=== PATIENT | female | born 1950 | race Caucasian/White ===

== ENCOUNTER 2016-07-17 15:08 | Outpatient (CLI) | payer MEDICARE | END 2016-07-17 15:09 | disposition home or self-care (01) | DX: E06.9 Thyroiditis, unspecified (principal); Z51.81 Encounter for therapeutic drug level monitoring ==

== ENCOUNTER 2016-09-18 14:17 | Outpatient (CLI) | payer MEDICARE ==
--- NOTE | 2016-09-24 09:19 | Mammography Report ---
DIGITAL BILATERAL SCREENING MAMMOGRAM: 09/18/2016 CLINICAL HISTORY: A 65-year-old female in for routine screening mammogram. Patient's family history indicates a maternal half uncle with breast cancer. Patient has had no prior breast surgeries. COMPARISON: 09/08/2007, 08/25/2012, 02/07/2014, 06/27/2015 TECHNIQUE: Routine CC and MLO projections were obtained of the breasts. FINDINGS: Breast parenchyma is composed almost entirely of fat. No significant clusters of calcific ation are seen. No significant masses are noted. No change is seen. IMPRESSION: BREASTS APPEAR RADIOGRAPHICALLY BENIGN. BIRADS CATEGORY 1 - NEGATIVE. RECOMMENDATIONS: Annual bilateral screening mammography. STANDARD QUALIFYING STATEMENTS 1. This examination was reviewed with the aid of Computer-Aided Detection (CAD). 2. A negative or benign imaging report should not delay biopsy if clinically suspicious findings are present. Consider surgical consultation if warranted. More than 5% of cancers are not identified by i maging. 3. Dense breasts may obscure an underlying neoplasm. JOB #: [id number] EXT JOB #:[id number]
== END 2016-09-18 14:18 | disposition home or self-care (01) ==
LOC: DI 14:17
PROVIDERS: ATTEND Registered Nurse
DX: Z12.31 Encounter for screening mammogram for malignant neoplasm of breast (principal)
CPT/HCPCS: 77067

== ENCOUNTER 2016-10-16 13:09 | Outpatient (CLI) | payer MEDICARE ==
--- NOTE | 2016-10-16 16:12 | XRAY Report ---
RIGHT HIP AND PELVIS: 10/16/2016 CLINICAL INDICATION: Pain. FINDINGS: Frontal view of the hips and pelvis and frogleg lateral view of the right hip demonstrate mild osteoarthritis. There is no evidence of fracture or dislocation. No radiopaque foreign body is s een in the soft tissues. IMPRESSION: MILD RIGHT HIP OSTEOARTHRITIS. JOB #: [id number] EXT JOB #:[id number]
== END 2016-10-16 13:10 | disposition home or self-care (01) ==
LOC: DI 13:09
PROVIDERS: ATTEND Registered Nurse
DX: M16.11 Unilateral primary osteoarthritis, right hip (principal)

== ENCOUNTER 2017-01-17 09:07 | Outpatient (CLI) | payer MEDICARE ==
--- NOTE | 2017-01-18 18:05 | MRI Report ---
EXAM: RIGHT HIP MRI WITHOUT CONTRAST EXAM DATE: 01/17/2017 10:42 AM. CLINICAL HISTORY: Right leg myelopathy. Weakness in the right leg for 3-4 weeks. Low back and right h ip pain for years. Tingling. COMPARISON: 10/05/2016 radiograph. TECHNIQUE: Multiplanar, multisequence T1-weighted and fluid-sensitive, small xotmn-na-chnd sequences of the hip and large evyfi-tr-upvc sequences of the pelvis without contrast. Other: None. FINDINGS: Bones: No fractures or subluxations. No marrow edema or bone lesions. Right Hip: No acetabular retroversion. Femoral head/neck offset is within normal limits. No effusion or loose bodies. The articular cartilage of the posterior half of the joint space is moderately thinn ed. On this non-arthrographic evaluation, there appears to be a full-thickness tear of the anterosupe rior labrum in the 2 o'clock position (701, images 15 and 16. This is also appreciated on series 601, image 25). The ligamentum teres is intact. Other Joints: The visualized lumbar spine, sacroiliac joints, symphysis pubis, and contralateral hip are unremarkable. Musculature: No edema or fatty atrophy. Moderate right and mild left gluteus medius tendinosis is pr esent. The visualized hamstring tendons are normal. The ischiofemoral space is normal. Pelvic Cavity: The patient has a fibroid uterus. The other visualized pelvic organs are unremarkable. Other: The visualized sciatic nerves are unremarkable. No bursitis. The subcutaneous tissues are unre markable. IMPRESSION: 1. Full-thickness tear of the anterosuperior right labrum. 2. Moderate right and mild left gluteus medius tendinosis. [facility] MUSCULOSKELETAL RADIOLOGY SECTION Referring Provider Line: [phone] SITE ID: [id number]
--- NOTE | 2017-01-19 11:09 | MRI Report ---
EXAM: MRI LUMBAR SPINE WITHOUT CONTRAST EXAM DATE: 01/17/2017 10:42 AM. CLINICAL HISTORY: 66-year-old woman with right leg myelopathy and weakness and low back pain. COMPARISON: None. TECHNIQUE: Multiplanar, multisequence T1-weighted and fluid-sensitive sequences of the lumbar spine f rom T12 to S1 without contrast. Other: None. FINDINGS: Spinal Cord: The conus terminates at T12. Cauda equina nerve roots are normal in appearance. Alignment: There is trace retrolisthesis of L1 on L2 and mild convex right scoliosis centered at L3-L 4. Bone Marrow: Five mdt-bhn-nnmchln lumbar vertebral bodies are present. No gross fractures or bone les ions. Mild degenerative endplate edema is present at L5-S1, left side worse than right. Hemangioma is incidentally noted in the L3 vertebral body, a benign finding. Disk Levels/Facets: T12-L1: Unremarkable. L1-L2: There is disk desiccation and moderate height loss. Small broad-based disk bulge results in mi nimal narrowing of the central canal and right neural foramen. L2-L3: There is disk desiccation without significant height loss. Small broad-based disk bulge result s of minimal narrowing of the central canal and right neural foramen. L3-L4: There is disk desiccation without significant height loss. No significant central canal or stephon ral foraminal narrowing. L4-L5: There is disk desiccation without significant height loss. No significant narrowing of the carmencita tral canal, but disk bulge results in mild to moderate narrowing of the left lateral recess. Disk in the subarticular spaces and facet hypertrophy result in mild to moderate narrowing of the neural fora chris bilaterally. L5-S1: There is disk desiccation without significant height loss. No significant narrowing of the carmencita tral canal or neural foramina. Musculature: Normal. No edema or fatty atrophy. Other: The uterus is enlarged with 1 or 2 T1 and T2 hypointense mass lesions along the anterior and p ossibly superior aspects measuring at least 5 cm in diameter, likely fibroids but incompletely evalua hector on this exam. IMPRESSION: 1. Multilevel degenerative disk changes with mild bony endplate edema at L5-S1, left side worse than right. 2. Degenerative changes result in the following: - L4-L5: No significant narrowing of the central canal overall, but there is mild to moderate narrowi ng of the left lateral recess. Mild/moderate narrowing of the neural foramina bilaterally. 3. 1 or 2 mass lesions along the uterus, incompletely visualized on this exam but likely fibroids. Ul trasound could be used for better evaluation. Comment: The following findings are so common in adults without low back pain that while we report th eir presence, they must be interpreted with caution and in the context of the clinical situation. (Re eyad Marx et al, Spine 2001) Prevalence of findings in patients without low back pain: Disk degeneration (any evidence): 92% Disk desiccation/T2 signal loss: 83% Disk height loss: 56% Disk bulge: 64% Disk protrusion: 32% Annular tear/high intensity zone: 38% [facility] Referring Provider Line: [phone] SITE ID: [id number]
== END 2017-01-17 09:08 | disposition home or self-care (01) ==
LOC: DI 09:07
PROVIDERS: ATTEND Registered Nurse
DX: M51.06 Intervertebral disc disorders with myelopathy, lumbar region (principal); M47.16 Other spondylosis with myelopathy, lumbar region; N85.8 Other specified noninflammatory disorders of uterus; S73.191A Other sprain of right hip, initial encounter; M67.88 Other specified disorders of synovium and tendon, other site
CPT/HCPCS: 72148

== ENCOUNTER 2017-04-01 12:45 | Outpatient (CLI) | payer MEDICARE ==
[2017-04-01 18:05] LABS: EOSINOPHILS # (AUTO) 0.3 10^3/uL (0.0-0.7); EOSINOPHILS % (AUTO) 7.2 %; HCT - HEMATOCRIT 43.7 % (37.0-47.0); HGB - HEMOGLOBIN 14.8 g/dL (12.0-16.0); LYMPHOCYTES # (AUTO) 1.9 10^3/uL (1.5-3.5); LYMPHOCYTES % (AUTO) 39.3 %; MEAN CORPUSCULAR HEMOGLOBIN 33.2 pg (27.0-31.0); MEAN CORPUSCULAR HGB CONC 33.8 g/dL (32.0-36.0); MEAN CORPUSCULAR VOLUME 98.1 fL (81.0-99.0); MEAN PLATELET VOLUME 8.3 fL (7.9-10.8); MONOCYTES # (AUTO) 0.4 10^3/uL (0.0-1.0); MONOCYTES % (AUTO) 8.1 %; NEUTROPHILS # (AUTO) 2.1 10^3/uL (1.5-6.6); NEUTROPHILS % (AUTO) 44.4 %; NUCLEATED RED BLOOD CELLS AUTO 0.1 /100WBC; RED BLOOD COUNT 4.45 10^6/uL (4.20-5.40); RED CELL DISTRIBUTION WIDTH 13.2 % (12.0-15.0); UNCORRECTED WHITE BLOOD COUNT 4.8 x10^3/uL; WHITE BLOOD COUNT 4.8 x10^3/uL (4.8-10.8)
[2017-04-01 18:52] LABS: ALBUMIN/GLOBULIN RATIO 1.5 (1.0-2.2); BILIRUBIN,TOTAL 0.9 mg/dL (0.2-1.0); BUN - BLOOD UREA NITROGEN 11 mg/dL (6-20); CALCIUM 8.9 mg/dL (8.5-10.3); CARBON DIOXIDE - CO2 26 mmol/L (21-32); CHLORIDE 102 mmol/L (101-111); CHOL/HDL RATIO 4.8 (<4.4); CHOLESTEROL 266 mg/dL; CREATININE 0.5 mg/dL (0.4-1.0); GFR - MDRD 123 (>89); GLUCOSE 113 mg/dL (70-100); HDL CHOLESTEROL 56 mg/dL; LDL/HDL RATIO 2.9 (<4.4); POTASSIUM 3.6 mmol/L (3.5-5.0); SODIUM 136 mmol/L (135-145); TOTAL PROTEIN 7.2 g/dL (6.7-8.2); TRIGLYCERIDES 226 mg/dL; VLDL CHOLESTEROL 45 mg/dL
[2017-04-01 18:55] LABS: HEMOGLOBIN A1C 0.6 g/dL
[2017-04-03 11:07] LABS: TEST RESULT REPORT
[2017-04-03 14:51] LABS: ANA SCREEN NEGATIVE (NEGATIVE)
[2017-04-03 15:26] LABS: ALPHA 1 GLOBULIN 0.3 g/dL (0.2-0.3); ALPHA 2 GLOBULIN 0.5 g/dL (0.5-0.9); BETA 1 GLOBULIN 0.5 g/dL (0.4-0.6); BETA 2 GLOBULIN 0.4 g/dL (0.2-0.5)
== END 2017-04-01 12:46 | disposition home or self-care (01) ==
LOC: LAB.F 12:45
PROVIDERS: ATTEND Registered Nurse
DX: E78.5 Hyperlipidemia, unspecified (principal); M19.90 Unspecified osteoarthritis, unspecified site; M25.9 Joint disorder, unspecified; M67.922 Unspecified disorder of synovium and tendon, left upper arm
CPT/HCPCS: 36415; 80053; 80061; 81599; 83036; 84155; 84165; 84443; 85025; 85651; 86038; 86235; 86430

== ENCOUNTER 2017-05-07 11:15 | Outpatient (CLI) | payer MEDICARE ==
--- NOTE | 2017-05-08 10:08 | XRAY Report ---
DATE OF SERVICE: 05/07/2017 RIGHT HIP AND PELVIS: 05/07/2017 COMPARISON: Hip MRI of 01/17/2017. INDICATION: Severe right hip pain. No fall. TECHNIQUE: Frontal pelvis and frogleg right hip. FINDINGS: Normal alignment. No degenerative changes. No evidence of acute fracture. Soft tissues grossly unremarkable. IMPRESSION: NEGATIVE RIGHT HIP AND PELVIS. TD: 05/08/2017 11:05 [facility]
== END 2017-05-07 11:16 | disposition home or self-care (01) ==
LOC: DI.S 11:15
PROVIDERS: ATTEND Nurse Practitioner Family
DX: M25.551 Pain in right hip (principal)

== ENCOUNTER 2017-05-13 13:43 | Outpatient (CLI) | payer MEDICARE ==
[2017-05-13 17:55] LABS: BASOPHILS # (AUTO) 0.1 10^3/uL (0.0-0.1); BASOPHILS % (AUTO) 0.8 %; EOSINOPHILS # (AUTO) 0.2 10^3/uL (0.0-0.7); EOSINOPHILS % (AUTO) 1.8 %; HGB - HEMOGLOBIN 14.1 g/dL (12.0-16.0); LYMPHOCYTES # (AUTO) 3.6 10^3/uL (1.5-3.5); LYMPHOCYTES % (AUTO) 35.6 %; MEAN CORPUSCULAR HEMOGLOBIN 32.5 pg (27.0-31.0); MEAN CORPUSCULAR HGB CONC 32.8 g/dL (32.0-36.0); MEAN CORPUSCULAR VOLUME 98.9 fL (81.0-99.0); MEAN PLATELET VOLUME 7.9 fL (7.9-10.8); MONOCYTES # (AUTO) 0.8 10^3/uL (0.0-1.0); MONOCYTES % (AUTO) 8.5 %; NEUTROPHILS # (AUTO) 5.3 10^3/uL (1.5-6.6); NEUTROPHILS % (AUTO) 53.3 %; PLT - PLATELET COUNT 324 10^3/uL (130-450); RED BLOOD COUNT 4.34 10^6/uL (4.20-5.40); RED CELL DISTRIBUTION WIDTH 14.2 % (12.0-15.0)
== END 2017-05-13 13:44 | disposition home or self-care (01) ==
LOC: LAB.F 13:43
PROVIDERS: ATTEND Orthopaedic Surgery
DX: M16.11 Unilateral primary osteoarthritis, right hip (principal)
CPT/HCPCS: 36415; 85025; 85651; 86140

== ENCOUNTER 2017-08-20 15:10 | Outpatient (CLI) | payer MEDICARE ==
[2017-08-20 18:24] LABS: THYROID STIMULATING HORMONE 2.66 uIU/mL (0.34-5.60)
[2017-08-20 18:27] LABS: FREE T4 (FREE THYROXINE) 0.28 ng/dL (0.58-1.64)
[2017-08-20 18:31] LABS: TOTAL T3 1.59 ng/mL (0.87-1.78)
[2017-08-20 18:35] LABS: T4 (THYROXINE) < 0.50 ug/dL (6.09-12.23)
== END 2017-08-20 15:11 | disposition home or self-care (01) ==
LOC: LAB.F 15:10
PROVIDERS: ATTEND Registered Nurse
DX: E06.9 Thyroiditis, unspecified (principal)
CPT/HCPCS: 36415; 84436; 84439; 84443; 84480; 84481; 84482

== ENCOUNTER 2017-08-25 11:30 | Day surgery (SDC) | payer MEDICARE ==
[2017-08-25] MEDS: LACTATED RINGERS 1,000 ML IV ONE (11:37)
[2017-08-25] MEDS ORDERED: MIDAZOLAM 2 MG/2 ML VIAL IVP ONE (12:30)
[2017-08-25] MEDS ORDERED: fentaNYL 250 MCG/5 ML VIAL IVP ONE (12:30)
[2017-08-25] MEDS: BENZOCAINE/TETRACAINE/BUTAMBEN SPRAY 56 GM TOP ONE (12:51)
[2017-08-25] MEDS ORDERED: PROPOFOL 200 MG/20 ML VIAL IVP ONE (13:29)
[2017-08-25 14:38] VITALS: BP 138/75
== END 2017-08-25 11:31 | disposition home or self-care (01) ==
LOC: SDS 11:30
PROVIDERS: ATTEND Surgery
PROC: 0DBM8ZX Excision of Descending Colon, Via Natural or Artificial Opening Endoscopic, Diagnostic (ICD-10-PCS; 2017-08-25)
PROC: 0DB48ZX Excision of Esophagogastric Junction, Via Natural or Artificial Opening Endoscopic, Diagnostic (ICD-10-PCS; principal; 2017-08-25 12:45)
PROC: 0DB78ZX Excision of Stomach, Pylorus, Via Natural or Artificial Opening Endoscopic, Diagnostic (ICD-10-PCS; 2017-08-25 12:45)
DX: Z12.11 Encounter for screening for malignant neoplasm of colon (principal); K31.7 Polyp of stomach and duodenum; K63.5 Polyp of colon; K57.30 Diverticulosis of large intestine without perforation or abscess without bleeding; K22.70 Barrett's esophagus without dysplasia; F32.9 Major depressive disorder, single episode, unspecified; E78.00 Pure hypercholesterolemia, unspecified
CPT/HCPCS: 43239; 45384; A9270; J3010; J7120; 88305

== ENCOUNTER 2017-10-22 08:56 | Outpatient (CLI) | payer MEDICARE ==
--- NOTE | 2017-10-22 16:33 | XRAY Report ---
Procedure Date: 10/22/2017 Accession Number: [id number] / [id number] Procedure: XRS - Finger(s) LT CPT Code: FULL RESULT: EXAM: Left thumb CLINICAL HISTORY: LUMP L THUMB @ MCP, ULNAR ASPECT INCREASING PAIN COMPARISON: 2006 TECHNIQUE: 3 views. FINDINGS: The area in question was not marked on the images. Bones: No fracture or bone lesion. No bone erosion Joints: Moderate degenerative change first metacarpal carpal articulation with joint space narrowing, sclerosis and subluxation. Degenerative change of the triscaphe joint. Ovoid 1 cm calcification adjacent to the ulnar aspect of the first metacarpal head and sesamoid may have been present in 2006 but appears denser. Question accessory sesamoid versus old trauma versus metabolic disorder versus loose body. Soft Tissues: No soft tissue swelling. IMPRESSION: Degenerative changes left thumb. Bony density adjacent to the first metacarpal phalangeal articulation; see above [facility]
== END 2017-10-22 08:57 | disposition home or self-care (01) ==
LOC: DI.S 08:56
PROVIDERS: ATTEND Registered Nurse
DX: M18.12 Unilateral primary osteoarthritis of first carpometacarpal joint, left hand (principal); M19.032 Primary osteoarthritis, left wrist; R22.32 Localized swelling, mass and lump, left upper limb
CPT/HCPCS: 73140

== ENCOUNTER 2018-02-14 16:34 | Emergency (ER) | payer MEDICARE ==
[2018-02-14 16:40] VITALS: BP 174/95
[2018-02-14] MEDS ORDERED: DOXYCYCLINE 100 MG TABLET PO STA (17:25)
[2018-02-14] MEDS ORDERED: predniSONE 20 MG TABLET PO STA (17:25)
[2018-02-14] MEDS ORDERED: LORATADINE 10 MG TABLET PO STA (17:36)
--- NOTE | 2018-02-14 17:36 | ED Physician Documentation ---
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 to rule out anaphylaxis Review of Systems Constitutional: denies: Fever Respiratory: reports: Dyspnea, Cough Skin: reports: Rash PD PAST MEDICAL HISTORY - Past Medical History Past Medical History: Yes Respiratory: Pneumonia - Present Medications Home Medications: Ambulatory Orders Medication Instructions Recorded Confirmed Cyclosporine [Restasis] 1 each OP BID 08/25/17 08/25/17 Esomeprazole Magnesium [Nexium] 40 mg PO DAILY 08/25/17 08/25/17 Estradiol [Divigel] 1 gm TD DAILY 08/25/17 08/25/17 Liothyronine [Cytomel] 42.5 mcg PO QDAC 08/25/17 08/25/17 Progesterone,Micronized 50 mg PO DAILY 08/25/17 08/25/17 [Progesterone] Celecoxib [Celebrex] 50 mg PO BID 02/14/18 02/14/18 Doxycycline Hyclate 100 mg PO BID #13 capsule 02/14/18 Fluticasone [Flonase] 2 sprays ISAAK DAILY #1 bottle 02/14/18 Loratadine [Claritin] 10 mg PO DAILY PRN #5 tablet 02/14/18 predniSONE [Deltasone] 60 mg PO DAILY PRN 5 Days #15 02/14/18 tablet - Allergies Allergies/Adverse Reactions: Allergies Allergy/AdvReac Type Severity Reaction Status Date / Time Penicillins Allergy Rash Verified 08/24/17 15:42 adhesive tape AdvReac Rash Verified 08/24/17 15:42 azithromycin [From Zithromax] AdvReac Rash Verified 02/14/18 16:40 latex AdvReac Rash Verified 08/24/17 15:42 - Social History Does the pt smoke?: No Smoking Status: Never smoker PD ED PE NORMAL - Vitals Vital signs reviewed: Yes - HEENT HEENT: Other (no oral edema) - Cardiac Cardiac: RRR - Respiratory Respiratory: Other (ronchi on L) - Derm Derm: Other (two rashes - a yeast appearing rash tate breasts and an urticarial rash to arms) Results - Vitals Vitals: Vital Signs - 24 hr 02/14/18 16:37 Temperature 37.2 C Heart Rate 103 H Respiratory 18 Rate Blood Pressure 174/95 H O2 Saturation 96 Oxygen O2 Source Room air Departure - Departure Disposition: 01 Home, Self Care Clinical Impression: Allergic urticaria Condition: Good Instructions: ED Allergic Reaction General Other Follow-Up: Mely Yanez, CONTROL TOWER OPERATOR [Primary Care Provider] - Prescriptions: Doxycycline Hyclate 100 mg PO BID #13 capsule Fluticasone [Flonase] 2 sprays ISAAK DAILY #1 bottle Loratadine [Claritin] 10 mg PO DAILY PRN #5 tablet PRN Reason: hives predniSONE [Deltasone] 60 mg PO DAILY PRN 5 Days #15 tablet PRN Reason: hives Comments: Stop the zithromax Take doxycycline twice a day for a week instead (next dose tomorrow morning) Apply over the counter antifungal cream to the rash under your breasts twice a day until better Take the claritin and steroid once a day for the hives until better (next dose tomorrow) Tae flonase 1 opuff in each nostril daily as needed for ear congestion Follow up PMD as needed Return if worse
== END 2018-02-14 17:54 | disposition home or self-care (01) ==
LOC: ED 16:34
DX: L50.0 Allergic urticaria (principal); J18.9 Pneumonia, unspecified organism
CPT/HCPCS: 99283; A9270; J7512

== ENCOUNTER 2018-12-28 13:34 | Outpatient (CLI) | payer MEDICARE ==
--- NOTE | 2018-12-28 15:48 | MRI Report ---
Reason: LUMBAR RADICULAR PAIN Procedure Date: 12/28/2018 Accession Number: [id number] / [id number] Procedure: MRI - Lumbar Spine W/O CPT Code: FULL RESULT: EXAM: MRI LUMBAR SPINE WITHOUT CONTRAST. EXAM DATE: 12/28/2018 02:31 PM. CLINICAL HISTORY: 68-year-old with back pain and lower extremity radiculopathy. Evaluate for lumbar pathology. COMPARISON: LUMBAR SPINE W/O 01/17/2017 9:30 AM. TECHNIQUE: Multiplanar, multisequence T1-weighted and fluid-sensitive sequences of the lumbar spine from T12 to S1 without contrast. Other: None. FINDINGS: Spinal Canal: The conus terminates at T12-L1. The conus medullaris and cauda equina are unremarkable. 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 Alignment: There appears to be 4 degrees of rightward curvature of the lumbar spine. There is minimal grade 1 retrolisthesis of L1 on L2 and L5 on S1. Bone Marrow: Five vcy-mkf-frnpvgf lumbar vertebral bodies are assumed. There are T1-T2 hyperintense lesion seen within the T12, L2, L3, L4, and S2 vertebral bodies likely representing hemangiomas. No acute fracture seen. There is Modic type I and type II changes seen throughout the lumbar spine that may be degenerative in nature. Disk Levels/Facets: T12-L1: Bilateral arthritic facet disease. No spinal canal stenosis. No definite neural foraminal narrowing. L1-L2: Mild endplate degenerative change, moderate loss of disk height, and disk desiccation. Small posterior disk bulge and bilateral arthritic facet disease. Fluid is seen within the facets bilaterally. Effacement of the lateral recesses. Mild to moderate right and mild left neural foraminal narrowing. Findings appear slightly progressed. L2-L3: Mild endplate degenerative change, mild loss of disk height, Schmorl's node formation, and disk desiccation. Small posterior disk bulge with superimposed tiny right neural foraminal disk protrusion. Bilateral arthritic facet disease. Effacement of the lateral recesses. Mild to moderate right and minimal left neural foraminal narrowing. Findings appear slightly progressed. L3-L4: Mild endplate degenerative change with mild loss of disk height and disk desiccation. Slight posterior disk bulge and bilateral arthritic facet disease. No definite spinal canal stenosis. Minimal right neural foraminal narrowing. Findings appear slightly progressed. L4-L5: Mild endplate degenerative change with mild loss of disk height and disk desiccation. Slight posterior disk bulge and bilateral arthritic facet disease. Fluid is seen within the right fossa. Effacement of the lateral recesses. Mild to moderate bilateral neural foraminal narrowing with contact of the exiting right L4 nerve root. Findings appear slightly progressed. L5-S1: Mild endplate degenerative change with mild loss of disk height and disk desiccation. Slight posterior disk bulge and bilateral arthritic facet disease. Fluid seen within the facets bilaterally. No definite spinal canal stenosis. Mild bilateral neural foraminal narrowing. Musculature: Normal. No edema or fatty atrophy. Other: Right kidney lower pole T2 hyperintense lesion measuring up to 8 mm (series 601, image 23) likely representing renal cyst. There appears to be a leiomyoma arising from the superior aspect of the uterus measuring 41 x 36 x 49 mm (CC by TR by AP). IMPRESSION: 1. Multilevel degenerative changes that appear slightly progressed from MR lumbar spine 01/17/2017. L1-L2: Effacement of the lateral recesses. Mild to moderate right and mild left neural foramen narrowing. L2-L3: Effacement of the lateral recesses. Mild to moderate right and minimal left neural foramen narrowing. L3-L4: No definite spinal canal stenosis. Minimal right neural foramen narrowing. L4-L5: Effacement of the lateral recesses. Mild to moderate bilateral neural foramen narrowing with contact of the exiting right L4 nerve root. L5-S1: No definite spinal canal stenosis. Mild bilateral neural foramen narrowing. Comment: The following findings are so common in adults without low back pain that while we report their presence, they must be interpreted with caution and in the context of the clinical situation. (Reference Denisevik et al, Spine 2001) Prevalence of findings in patients without low back pain: Disk degeneration (any evidence): 92% Disk desiccation/T2 signal loss: 83% Disk height loss: 56% Disk bulge: 64% Disk protrusion: 32% Annular tear/high intensity zone: 38% [facility]
== END 2018-12-28 13:35 | disposition home or self-care (01) ==
LOC: DI 13:34
PROVIDERS: ATTEND Physical Medicine & Rehabilitation
DX: M51.16 Intervertebral disc disorders with radiculopathy, lumbar region (principal); M48.061 Spinal stenosis, lumbar region without neurogenic claudication
CPT/HCPCS: 72148

== ENCOUNTER 2019-04-05 13:07 | Outpatient (CLI) | payer MEDICARE ==
--- NOTE | 2019-04-06 11:11 | XRAY Report ---
Reason: RT KNEE PAIN Procedure Date: 04/05/2019 Accession Number: [id number] / [id number] Procedure: XR - Knee 3 View RT CPT Code: Final Report FULL RESULT: EXAM: RIGHT KNEE RADIOGRAPHY EXAM DATE: 04/05/2019 01:31 PM. CLINICAL HISTORY: Right knee pain. COMPARISON: None. TECHNIQUE: 3 views. FINDINGS: Bones: No fractures or bone lesions. Joints: No subluxation. Mild multicompartment degenerative changes with early narrowing, subchondral sclerosis and trace osteophytic formation. Soft Tissues: Minimal suprapatellar joint effusion. IMPRESSION: 1. Small suprapatellar effusion. No fracture or malalignment. 2. Mild multicompartment degenerative changes. [facility]
== END 2019-04-05 13:08 | disposition home or self-care (01) ==
LOC: DI 13:07
PROVIDERS: ATTEND Nurse Practitioner Family
DX: M17.11 Unilateral primary osteoarthritis, right knee (principal); M25.461 Effusion, right knee

== ENCOUNTER 2023-01-29 14:47 | Outpatient (CLI) | payer MEDICARE ==
--- NOTE | 2023-01-29 15:26 | XRAY Report ---
PROCEDURE: Ribs w/PA Chest RT INDICATIONS: RIB PAIN TECHNIQUE: 3 views of the right ribs were acquired, along with a single view chest. COMPARISON: None. FINDINGS: Surgical changes and devices: None. Bones and chest wall: No fractures or dislocations. No suspicious bony lesions. Overlying soft tis sues appear unremarkable. Lungs and pleura: No pleural effusions or pneumothorax. Lungs appear clear. Mediastinum: Mediastinal contours appear normal. Heart size is normal. IMPRESSION: No displaced rib fracture or pneumothorax. Reviewed by: Panchito Cameron MD on 01/29/2023 3:25 PM PDT Approved by: Panchito Cameron MD on 01/29/2023 3:25 PM PDT Station ID: [id number]
== END 2023-01-29 14:48 | disposition home or self-care (01) ==
LOC: DI.S 14:47
PROVIDERS: ATTEND Registered Nurse
DX: R07.81 Pleurodynia (principal)

== ENCOUNTER 2023-12-08 21:48 | Outpatient (CLI) | payer MEDICARE ==
--- NOTE | 2023-12-09 20:20 | Ultrasound Report ---
PROCEDURE: Ankle Brachial Index INDICATIONS: PVD TECHNIQUE: Ankle-brachial indices were obtained bilaterally and recorded. COMPARISONS: None. FINDINGS: Right ankle brachial index (JESÚS): 1.12 Left ankle brachial index (JESÚS): 1.1 Healing potential: Ankle pressures >55 mm Hg in non-diabetics and >80 mm Hg in diabetics are likely to achieve primary h ealing of ischemic foot ulcers. Toe pressures >30 mm Hg are likely to achieve primary healing of ischemic foot ulcers, toe or transme tatarsal amputations. IMPRESSION: Normal JESÚS bilaterally. Reviewed by: Panchito Cameron MD on 12/09/2023 8:19 PM PDT Approved by: Panchito Cameron MD on 12/09/2023 8:19 PM PDT Station ID: [id number]
== END 2023-12-08 21:49 | disposition home or self-care (01) ==
LOC: DI 21:48
PROVIDERS: ATTEND Registered Nurse
DX: I73.9 Peripheral vascular disease, unspecified (principal)
CPT/HCPCS: 93922